=== PATIENT | female | born 1930 | race Caucasian/White ===

== ENCOUNTER 2020-05-06 18:14 | Inpatient (IN) | payer OTHER ==
[2020-05-06 20:26] LABS: BASO % 0.5 % (0-2.0); EOS % 2.5 % (0-4.5); HEMATOCRIT 28.9 % (32.4-45.2); HEMOGLOBIN 9.4 GM/dL (10.7-15.3); LYMPH % 28.8 % (8-40); MCH 33.2 pg (25.7-33.7); MCHC 32.5 g/dl (32.0-36.0); MEAN CELL VOLUME 102.3 fl (80-96); MEAN PLT VOLUME 10.5 fl (7.5-11.1); MONO % 10.1 % (3.8-10.2); NEUT % 58.1 % (42.8-82.8); PLATELET COUNT 323 K/MM3 (134-434); RBC 2.82 M/mm3 (3.60-5.2); RDW 15.1 % (11.6-15.6)
[2020-05-06] MEDS ORDERED: HALOPERIDOL LACTATE 5 MG/ML IM ONE ×2 (20:26→23:31)
[2020-05-06 20:50] LABS: ALBUMIN 2.4 g/dl (3.4-5.0); CALCIUM 10.1 mg/dL (8.5-10.1); MAGNESIUM 2.6 mg/dL (1.8-2.4)
[2020-05-06 20:54] LABS: PHOSPHOROUS 1.8 mg/dL (2.5-4.9)
[2020-05-06 20:55] LABS: BILIRUBIN,TOTAL 0.4 mg/dL (0.2-1); TOT PROT 5.9 g/dl (6.4-8.2)
[2020-05-06 21:11] LABS: BLOOD UREA NITROGEN 142.7 mg/dL (7-18)
[2020-05-06 21:12] LABS: POTASSIUM 6.1 mmol/L (3.5-5.1)
[2020-05-06] MEDS ORDERED: SODIUM CHLORIDE 0.9% 500 ML INFUS.BAG IV ONE (21:17)
[2020-05-06] MEDS ORDERED: CALCIUM GLUCONATE 10% - 1,000 MG/10 ML VIAL IVPUSH ONE (21:18)
[2020-05-06] MEDS ORDERED: INSULIN REGULAR HUMAN 100 UNITS/ML *VIAL IVPUSH ONE (21:19)
[2020-05-06] MEDS ORDERED: DEXTROSE 50%-WATER - 25 GM/50 ML VIAL IVPUSH ONE (21:19)
[2020-05-06] MEDS ORDERED: ALBUTEROL SO4 0.083% IH SOL 2.5 MG/3 ML VIAL.NEB. NEB ONE (21:20)
[2020-05-06] MEDS ORDERED: FUROSEMIDE 40 MG/4 ML INJECTABLE VIAL IVPUSH ONE (21:21)
[2020-05-06] MEDS ORDERED: DEXTROSE 50%-WATER 25 GM/50 ML DISP.SYRIN ONE (21:30)
[2020-05-07] MEDS ORDERED: LEVOTHYROXINE NA 25 MCG TABLET (FP) PO SCH (07:00)
[2020-05-07] MEDS ORDERED: LEVOTHYROXINE 25 MCG PO SCH (09:50)
[2020-05-07] MEDS ORDERED: LEVOTHYROXINE 25 MG PO SCH (10:00)
[2020-05-07] MEDS ORDERED: SILVER SULFADIAZINE 1% TOP CREAM 50 GM JAR TP SCH (10:00)
[2020-05-07] MEDS ORDERED: FERROUS SULFATE 300 MG PO SCH (10:00)
[2020-05-07] MEDS ORDERED: FAMOTIDINE 20 MG TABLET PO SCH (10:00)
[2020-05-07] MEDS ORDERED: FERROUS SULFATE 220 MG PO SCH (10:00)
[2020-05-07] MEDS ORDERED: CALCIUM 500MG/VIT-D 200 UNITS COMBO TABLET (FP) PO SCH (10:00)
[2020-05-07] MEDS: SODIUM CHLORIDE 1,000 ML IV SCH (10:07)
[2020-05-07] MEDS: MULTIVITAMINS (DAILY MVI) TABLET (FP) PO SCH (10:10)
[2020-05-07] MEDS: FOLIC ACID 1 MG TABLET (FP) PO SCH (10:10)
[2020-05-07] MEDS: ASPIRIN 81 MG CHEWABLE TABLETS PO SCH (10:10)
[2020-05-07] MEDS: METOPROLOL TARTRATE 25 MG TABLET (FP) PO SCH ×2 (10:10→22:16)
[2020-05-07] MEDS: ACETAMINOPHEN 500 MG TABLET (FP) PO PRN ×2 (10:10→22:16)
[2020-05-07] MEDS ORDERED: SODIUM ZIRCONIUM CYCLOSILICATE (LOKELMA) 5 GM PACKET PO ONE (10:30)
[2020-05-07] MEDS ORDERED: NAPH,MB-DB/K PH,MBDB POWDER PACKET PO SCH (10:30)
[2020-05-07 11:43] LABS: CREATININE, URINE RANDOM < 13.0 mg/dL (30-150)
[2020-05-07] MEDS ORDERED: PT OWN MED DRAWER 7, Y5N ONE (11:53)
[2020-05-07] MEDS: HEPARIN NA (PORCINE) 5,000 UNITS/ML 1ML VIAL SQ SCH ×2 (11:55→22:17)
[2020-05-07] MEDS: MINERAL OIL/PETROLAT/WATER TOPICAL CREAM 454 GM JAR TP SCH ×2 (11:55→22:15)
[2020-05-07] MEDS: FAMOTIDINE 20 MG TABLET PO SCH (11:56)
[2020-05-07 11:58] LABS: EPI CELLS 5 /uL (0-25.1); HYALINE CASTS 21 /uL (0-3.1); PH,URINE 5.5 (5.0-8.0); URINE APPEARANCE CLOUDY; URINE BACTERIA >9,000 /uL (0-1359); URINE BILIRUBIN NEGATIVE (NEGATIVE); URINE COLOR YELLOW; URINE GLUCOSE (UA) NEGATIVE (NEGATIVE); URINE KETONE NEGATIVE (NEGATIVE); URINE LEUK ESTERASE 3+ (NEGATIVE); URINE NITRITE NEGATIVE (NEGATIVE); URINE PROTEIN NEGATIVE (NEGATIVE); URINE RBC 91 /uL (0-23.9); URINE UROBILINOGEN 0.2 mg/dL (0.2-1.0); URINE WBC 545 /uL (0-25.8)
[2020-05-07 13:19] LABS: CALCIUM 9.9 mg/dL (8.5-10.1); POTASSIUM 5.2 mmol/L (3.5-5.1)
[2020-05-07 13:23] LABS: POTASSIUM 5.1 mmol/L (3.5-5.1)
[2020-05-07 13:30] LABS: BLOOD UREA NITROGEN 145.3 mg/dL (7-18)
[2020-05-07 13:39] LABS: ALBUMIN 2.2 g/dl (3.4-5.0)
[2020-05-07 13:40] LABS: MAGNESIUM 2.6 mg/dL (1.8-2.4)
[2020-05-07 13:43] LABS: PHOSPHOROUS 2.1 mg/dL (2.5-4.9)
[2020-05-07 13:44] LABS: TOT PROT 5.5 g/dl (6.4-8.2)
[2020-05-07 13:52] LABS: BILIRUBIN,TOTAL 0.7 mg/dL (0.2-1)
[2020-05-07 13:53] LABS: BLOOD UREA NITROGEN 139.4 mg/dL (7-18)
[2020-05-07] MEDS: MIRTAZAPINE 15 MG TABLET (FP) PO SCH (22:15)
[2020-05-07] MEDS: FERROUS SO4 325 MG TABLET (FP) PO SCH (22:16)
[2020-05-08] MEDS: LEVOTHYROXINE NA 75 MCG TABLET (FP) PO SCH (06:16)
[2020-05-08] MEDS: SODIUM CHLORIDE 1,000 ML IV SCH (08:25)
[2020-05-08 10:07] LABS: BASO % 0.4 % (0-2.0); EOS % 4.3 % (0-4.5); HEMATOCRIT 23.2 % (32.4-45.2); HEMOGLOBIN 7.6 GM/dL (10.7-15.3); LYMPH % 35.1 % (8-40); MCH 34.2 pg (25.7-33.7); MCHC 32.8 g/dl (32.0-36.0); MEAN CELL VOLUME 104.3 fl (80-96); MONO % 9.2 % (3.8-10.2); PLATELET COUNT 289 K/MM3 (134-434); RBC 2.23 M/mm3 (3.60-5.2); RDW 16.1 % (11.6-15.6); WHITE BLOOD COUNT 6.5 K/mm3 (4.0-10.0)
[2020-05-08 10:22] LABS: POTASSIUM 4.7 mmol/L (3.5-5.1)
[2020-05-08 10:25] LABS: CALCIUM 8.8 mg/dL (8.5-10.1)
[2020-05-08 10:27] LABS: CREATININE 1.8 mg/dL (0.55-1.3)
[2020-05-08 10:48] LABS: BLOOD UREA NITROGEN 120.1 mg/dL (7-18)
[2020-05-08] MEDS: FERROUS SO4 325 MG TABLET (FP) PO SCH ×2 (11:26→22:23)
[2020-05-08] MEDS: ASPIRIN 81 MG CHEWABLE TABLETS PO SCH (11:26)
[2020-05-08] MEDS: HEPARIN NA (PORCINE) 5,000 UNITS/ML 1ML VIAL SQ SCH ×2 (11:26→22:23)
[2020-05-08] MEDS: MINERAL OIL/PETROLAT/WATER TOPICAL CREAM 454 GM JAR TP SCH ×2 (11:26→22:23)
[2020-05-08] MEDS: FOLIC ACID 1 MG TABLET (FP) PO SCH (11:26)
[2020-05-08] MEDS: ACETAMINOPHEN 500 MG TABLET (FP) PO PRN (11:27)
[2020-05-08] MEDS: METOPROLOL TARTRATE 25 MG TABLET (FP) PO SCH ×2 (11:27→22:23)
[2020-05-08] MEDS: FAMOTIDINE 20 MG TABLET PO SCH (11:28)
[2020-05-08] MEDS: MULTIVITAMINS (DAILY MVI) TABLET (FP) PO SCH (11:35)
[2020-05-08] MEDS ORDERED: SODIUM CHLORIDE 1,000 ML IV SCH (12:59)
[2020-05-08] MEDS: SILVER SULFADIAZINE 1% TOP CREAM 50 GM JAR TP SCH (14:01)
[2020-05-08] MEDS: MIRTAZAPINE 15 MG TABLET (FP) PO SCH (22:23)
[2020-05-09] MEDS: LEVOTHYROXINE NA 75 MCG TABLET (FP) PO SCH (06:29)
[2020-05-09 08:54] LABS: POTASSIUM 4.4 mmol/L (3.5-5.1)
[2020-05-09 09:03] LABS: BILIRUBIN,TOTAL 0.6 mg/dL (0.2-1); TOT PROT 4.8 g/dl (6.4-8.2)
[2020-05-09 09:04] LABS: CALCIUM 8.3 mg/dL (8.5-10.1)
[2020-05-09 09:05] LABS: MAGNESIUM 2.3 mg/dL (1.8-2.4)
[2020-05-09 09:07] LABS: BLOOD UREA NITROGEN 103.6 mg/dL (7-18)
[2020-05-09 09:13] LABS: CREATININE 1.7 mg/dL (0.55-1.3)
[2020-05-09 09:40] LABS: BASO % 0.7 % (0-2.0); EOS % 4.7 % (0-4.5); LYMPH % 36.5 % (8-40); MCH 33.5 pg (25.7-33.7); MCHC 31.9 g/dl (32.0-36.0); MEAN CELL VOLUME 104.9 fl (80-96); MONO % 8.9 % (3.8-10.2); NEUT % 49.2 % (42.8-82.8); PLATELET COUNT 243 K/MM3 (134-434); RBC 2.38 M/mm3 (3.60-5.2); RDW 17.6 % (11.6-15.6); WHITE BLOOD COUNT 7.3 K/mm3 (4.0-10.0)
[2020-05-09] MEDS: MINERAL OIL/PETROLAT/WATER TOPICAL CREAM 454 GM JAR TP SCH ×2 (11:25→21:16)
[2020-05-09] MEDS: ASPIRIN 81 MG CHEWABLE TABLETS PO SCH (11:25)
[2020-05-09] MEDS: FERROUS SO4 325 MG TABLET (FP) PO SCH ×2 (11:26→21:15)
[2020-05-09] MEDS: FAMOTIDINE 20 MG TABLET PO SCH (11:26)
[2020-05-09] MEDS: SILVER SULFADIAZINE 1% TOP CREAM 50 GM JAR TP SCH (11:26)
[2020-05-09] MEDS: HEPARIN NA (PORCINE) 5,000 UNITS/ML 1ML VIAL SQ SCH ×2 (11:26→21:16)
[2020-05-09] MEDS: MULTIVITAMINS (DAILY MVI) TABLET (FP) PO SCH (11:26)
[2020-05-09] MEDS: FOLIC ACID 1 MG TABLET (FP) PO SCH (11:26)
[2020-05-09] MEDS: METOPROLOL TARTRATE 25 MG TABLET (FP) PO SCH ×2 (11:26→21:15)
[2020-05-09] MEDS: SODIUM CHLORIDE 0.45% 1,000 ML IV SCH ×2 (12:18→23:26)
[2020-05-09 14:04] VITALS: BMI 18.9
[2020-05-09] MEDS: AMINO ACIDS/PROTEIN HYDROLYS 30 ML LIQUID.PKT PO SCH (17:22)
[2020-05-09] MEDS: SODIUM BICARBONATE 650 MG TABLET PO SCH (17:22)
[2020-05-09] MEDS: MIRTAZAPINE 15 MG TABLET (FP) PO SCH (21:16)
[2020-05-09] MEDS: ACETAMINOPHEN 500 MG TABLET (FP) PO PRN (21:16)
[2020-05-10] MEDS: LEVOTHYROXINE NA 75 MCG TABLET (FP) PO SCH (06:10)
[2020-05-10 07:45] LABS: BASO % 0.5 % (0-2.0); EOS % 4.5 % (0-4.5); HEMATOCRIT 29.1 % (32.4-45.2); HEMOGLOBIN 9.3 GM/dL (10.7-15.3); LYMPH % 31.9 % (8-40); MCHC 32.1 g/dl (32.0-36.0); MEAN CELL VOLUME 105.9 fl (80-96); MEAN PLT VOLUME 9.2 fl (7.5-11.1); MONO % 10.1 % (3.8-10.2); PLATELET COUNT 333 K/MM3 (134-434); RBC 2.75 M/mm3 (3.60-5.2); RDW 17.8 % (11.6-15.6); WHITE BLOOD COUNT 8.1 K/mm3 (4.0-10.0)
[2020-05-10 07:56] LABS: POTASSIUM 3.9 mmol/L (3.5-5.1)
[2020-05-10 08:01] LABS: CALCIUM 7.9 mg/dL (8.5-10.1)
[2020-05-10 08:03] LABS: ALBUMIN 2.2 g/dl (3.4-5.0); BLOOD UREA NITROGEN 99.2 mg/dL (7-18)
[2020-05-10 08:05] LABS: BILIRUBIN,TOTAL 0.5 mg/dL (0.2-1); CREATININE 1.7 mg/dL (0.55-1.3); TOT PROT 5.4 g/dl (6.4-8.2)
[2020-05-10] MEDS ORDERED: PT OWN MED DRAWER 7, Y5N ONE (09:17)
[2020-05-10] MEDS: FOLIC ACID 1 MG TABLET (FP) PO SCH (09:31)
[2020-05-10] MEDS: MULTIVITAMINS (DAILY MVI) TABLET (FP) PO SCH (09:31)
[2020-05-10] MEDS: FAMOTIDINE 20 MG TABLET PO SCH (09:31)
[2020-05-10] MEDS: MULTIVIT-MINERALS ORAL LIQUID PO SCH (09:31)
[2020-05-10] MEDS: FERROUS SO4 325 MG TABLET (FP) PO SCH ×2 (09:32→21:10)
[2020-05-10] MEDS: ASPIRIN 81 MG CHEWABLE TABLETS PO SCH (09:32)
[2020-05-10] MEDS: METOPROLOL TARTRATE 25 MG TABLET (FP) PO SCH ×2 (09:32→21:11)
[2020-05-10] MEDS: HEPARIN NA (PORCINE) 5,000 UNITS/ML 1ML VIAL SQ SCH ×2 (09:32→21:11)
[2020-05-10] MEDS: SODIUM BICARBONATE 650 MG TABLET PO SCH (09:32)
[2020-05-10] MEDS: AMINO ACIDS/PROTEIN HYDROLYS 30 ML LIQUID.PKT PO SCH ×2 (09:32→18:39)
[2020-05-10] MEDS: SILVER SULFADIAZINE 1% TOP CREAM 50 GM JAR TP SCH (09:37)
[2020-05-10] MEDS: MINERAL OIL/PETROLAT/WATER TOPICAL CREAM 454 GM JAR TP SCH ×2 (09:37→21:10)
[2020-05-10] MEDS: SODIUM BICARBONATE 8.4% - 75 MEQ in DEXTROSE 5%-WATER - 1,000 ML IV SCH (12:02)
[2020-05-10 12:40] LABS: ANISOCYTOSIS 2+; MACROCYTOSIS 2+; PLATELET ESTIMATE NORMAL
[2020-05-10] MEDS: MIRTAZAPINE 15 MG TABLET (FP) PO SCH (21:11)
[2020-05-11] MEDS: SODIUM BICARBONATE 8.4% - 75 MEQ in DEXTROSE 5%-WATER - 1,000 ML IV SCH ×2 (00:43→12:10)
[2020-05-11] MEDS: LEVOTHYROXINE NA 75 MCG TABLET (FP) PO SCH (06:25)
[2020-05-11 07:20] LABS: BASO % 0.4 % (0-2.0); EOS % 4.4 % (0-4.5); HEMATOCRIT 25.8 % (32.4-45.2); HEMOGLOBIN 8.3 GM/dL (10.7-15.3); LYMPH % 33.6 % (8-40); MCH 33.6 pg (25.7-33.7); MCHC 32.4 g/dl (32.0-36.0); MEAN CELL VOLUME 103.7 fl (80-96); MEAN PLT VOLUME 9.4 fl (7.5-11.1); MONO % 5.9 % (3.8-10.2); NEUT % 55.7 % (42.8-82.8); PLATELET COUNT 355 K/MM3 (134-434); RBC 2.48 M/mm3 (3.60-5.2); RDW 17.1 % (11.6-15.6); WHITE BLOOD COUNT 8.2 K/mm3 (4.0-10.0)
[2020-05-11 07:41] LABS: POTASSIUM 3.6 mmol/L (3.5-5.1)
[2020-05-11 07:43] LABS: ALBUMIN 2.2 g/dl (3.4-5.0); CALCIUM 7.3 mg/dL (8.5-10.1)
[2020-05-11 07:44] LABS: BLOOD UREA NITROGEN 84.1 mg/dL (7-18)
[2020-05-11 07:47] LABS: CREATININE 1.6 mg/dL (0.55-1.3)
[2020-05-11 07:48] LABS: BILIRUBIN,TOTAL 0.4 mg/dL (0.2-1); TOT PROT 5.2 g/dl (6.4-8.2)
[2020-05-11] MEDS: AMINO ACIDS/PROTEIN HYDROLYS 30 ML LIQUID.PKT PO SCH ×2 (09:46→18:59)
[2020-05-11] MEDS: HEPARIN NA (PORCINE) 5,000 UNITS/ML 1ML VIAL SQ SCH ×2 (09:47→21:52)
[2020-05-11] MEDS: FERROUS SO4 325 MG TABLET (FP) PO SCH ×2 (09:47→21:45)
[2020-05-11] MEDS: METOPROLOL TARTRATE 25 MG TABLET (FP) PO SCH ×2 (09:47→21:52)
[2020-05-11] MEDS: ASPIRIN 81 MG CHEWABLE TABLETS PO SCH (09:47)
[2020-05-11] MEDS: FAMOTIDINE 20 MG TABLET PO SCH (09:47)
[2020-05-11] MEDS: FOLIC ACID 1 MG TABLET (FP) PO SCH (09:47)
[2020-05-11] MEDS: SILVER SULFADIAZINE 1% TOP CREAM 50 GM JAR TP SCH (09:48)
[2020-05-11] MEDS: MINERAL OIL/PETROLAT/WATER TOPICAL CREAM 454 GM JAR TP SCH ×2 (09:48→21:45)
[2020-05-11] MEDS: MULTIVIT-MINERALS ORAL LIQUID PO SCH (09:48)
[2020-05-11] MEDS: MULTIVITAMINS (DAILY MVI) TABLET (FP) PO SCH (09:49)
[2020-05-11] MEDS: MIRTAZAPINE 15 MG TABLET (FP) PO SCH (21:53)
[2020-05-12] MEDS: SODIUM BICARBONATE 8.4% - 75 MEQ in DEXTROSE 5%-WATER - 1,000 ML IV SCH ×2 (01:08→12:48)
[2020-05-12] MEDS: ACETAMINOPHEN 500 MG TABLET (FP) PO PRN (02:41)
[2020-05-12] MEDS: LEVOTHYROXINE NA 75 MCG TABLET (FP) PO SCH (06:18)
[2020-05-12 07:11] LABS: BASO % 0.3 % (0-2.0); HEMATOCRIT 25.9 % (32.4-45.2); HEMOGLOBIN 8.6 GM/dL (10.7-15.3); LYMPH % 39.2 % (8-40); MCH 33.5 pg (25.7-33.7); MCHC 33.1 g/dl (32.0-36.0); MEAN CELL VOLUME 101.4 fl (80-96); MEAN PLT VOLUME 8.8 fl (7.5-11.1); MONO % 7.3 % (3.8-10.2); NEUT % 48.2 % (42.8-82.8); PLATELET COUNT 325 K/MM3 (134-434); RBC 2.55 M/mm3 (3.60-5.2); RDW 16.5 % (11.6-15.6); WHITE BLOOD COUNT 8.3 K/mm3 (4.0-10.0)
[2020-05-12 07:44] LABS: BLOOD UREA NITROGEN 74.2 mg/dL (7-18)
[2020-05-12 07:45] LABS: MAGNESIUM 1.6 mg/dL (1.8-2.4)
[2020-05-12 07:48] LABS: CREATININE 1.5 mg/dL (0.55-1.3); PHOSPHOROUS 2.5 mg/dL (2.5-4.9)
[2020-05-12 07:49] LABS: BILIRUBIN,TOTAL 0.5 mg/dL (0.2-1); TOT PROT 5.1 g/dl (6.4-8.2)
[2020-05-12] MEDS ORDERED: PT OWN MED DRAWER 7, Y5N ONE (09:49)
[2020-05-12] MEDS: ASPIRIN 81 MG CHEWABLE TABLETS PO SCH (09:52)
[2020-05-12] MEDS: MULTIVITAMINS (DAILY MVI) TABLET (FP) PO SCH (09:52)
[2020-05-12] MEDS: FAMOTIDINE 20 MG TABLET PO SCH (09:52)
[2020-05-12] MEDS: METOPROLOL TARTRATE 25 MG TABLET (FP) PO SCH ×2 (09:52→22:22)
[2020-05-12] MEDS: AMINO ACIDS/PROTEIN HYDROLYS 30 ML LIQUID.PKT PO SCH ×2 (09:52→17:20)
[2020-05-12] MEDS: FERROUS SO4 325 MG TABLET (FP) PO SCH ×2 (09:52→22:21)
[2020-05-12] MEDS: FOLIC ACID 1 MG TABLET (FP) PO SCH (09:52)
[2020-05-12] MEDS: HEPARIN NA (PORCINE) 5,000 UNITS/ML 1ML VIAL SQ SCH ×2 (09:53→22:23)
[2020-05-12] MEDS: MULTIVIT-MINERALS ORAL LIQUID PO SCH (09:53)
[2020-05-12] MEDS: SILVER SULFADIAZINE 1% TOP CREAM 50 GM JAR TP SCH (09:53)
[2020-05-12] MEDS: MINERAL OIL/PETROLAT/WATER TOPICAL CREAM 454 GM JAR TP SCH ×2 (09:53→22:21)
[2020-05-12] MEDS ORDERED: POTASSIUM CHLORIDE ORAL LIQUID 20 MEQ/15 ML PO ONE (16:03)
[2020-05-12] MEDS ORDERED: SODIUM CHLORIDE 0.45%/POT 20 MEQ/1,000 ML INFUS.BAG IV SCH (16:15)
[2020-05-12] MEDS: CEPHALEXIN MONOHYDRATE 500 MG CAPSULE (UD) PO SCH (22:22)
[2020-05-12] MEDS: MIRTAZAPINE 15 MG TABLET (FP) PO SCH (22:22)
[2020-05-13] MEDS: LEVOTHYROXINE NA 75 MCG TABLET (FP) PO SCH (06:29)
[2020-05-13 08:04] LABS: POTASSIUM 4.3 mmol/L (3.5-5.1)
[2020-05-13 08:16] LABS: BLOOD UREA NITROGEN 65.4 mg/dL (7-18)
[2020-05-13 08:17] LABS: CALCIUM 7.1 mg/dL (8.5-10.1)
[2020-05-13 08:20] LABS: CREATININE 1.4 mg/dL (0.55-1.3)
[2020-05-13] MEDS: AMINO ACIDS/PROTEIN HYDROLYS 30 ML LIQUID.PKT PO SCH (09:00)
[2020-05-13] MEDS: ASPIRIN 81 MG CHEWABLE TABLETS PO SCH (09:06)
[2020-05-13] MEDS: METOPROLOL TARTRATE 25 MG TABLET (FP) PO SCH (09:06)
[2020-05-13] MEDS: CEPHALEXIN MONOHYDRATE 500 MG CAPSULE (UD) PO SCH (09:07)
[2020-05-13] MEDS: FERROUS SO4 325 MG TABLET (FP) PO SCH (09:07)
[2020-05-13] MEDS: MULTIVITAMINS (DAILY MVI) TABLET (FP) PO SCH (09:08)
[2020-05-13] MEDS: MINERAL OIL/PETROLAT/WATER TOPICAL CREAM 454 GM JAR TP SCH (09:09)
[2020-05-13] MEDS: HEPARIN NA (PORCINE) 5,000 UNITS/ML 1ML VIAL SQ SCH (09:09)
[2020-05-13] MEDS: FAMOTIDINE 20 MG TABLET PO SCH (09:09)
[2020-05-13] MEDS: FOLIC ACID 1 MG TABLET (FP) PO SCH (09:09)
[2020-05-13] MEDS: SILVER SULFADIAZINE 1% TOP CREAM 50 GM JAR TP SCH (09:09)
[2020-05-13] MEDS: MULTIVIT-MINERALS ORAL LIQUID PO SCH (09:15)
[2020-05-13 12:19] LABS: HEMATOCRIT 23.8 % (32.4-45.2); HEMOGLOBIN 7.9 GM/dL (10.7-15.3); MCH 33.8 pg (25.7-33.7); MCHC 33.3 g/dl (32.0-36.0); MEAN CELL VOLUME 101.5 fl (80-96); MEAN PLT VOLUME 8.8 fl (7.5-11.1); PLATELET COUNT 280 K/MM3 (134-434); RBC 2.34 M/mm3 (3.60-5.2); RDW 16.8 % (11.6-15.6); WHITE BLOOD COUNT 7.1 K/mm3 (4.0-10.0)
[2020-05-13 13:52] VITALS: BP 122/70; PULSE 75; TEMP 97
== END 2020-05-13 15:00 | DRG 683 ==
LOC: JER 18:14 → JERBED 21:24 → J4S 05-07 00:52
PROVIDERS: ADMIT Internal Medicine; ATTEND Family Medicine
DX: N17.9 Acute kidney failure, unspecified (principal); R64 Cachexia; Z68.1 Body mass index [BMI] 19.9 or less, adult; E87.2 Acidosis; E87.0 Hyperosmolality and hypernatremia; N39.0 Urinary tract infection, site not specified; E87.5 Hyperkalemia; K21.9 Gastro-esophageal reflux disease without esophagitis; I10 Essential (primary) hypertension; D64.9 Anemia, unspecified; E03.9 Hypothyroidism, unspecified; I25.10 Atherosclerotic heart disease of native coronary artery without angina pectoris; F32.9 Major depressive disorder, single episode, unspecified; E83.39 Other disorders of phosphorus metabolism; F03.90 Unspecified dementia, unspecified severity, without behavioral disturbance, psychotic disturbance, mood disturbance, and anxiety; B96.1 Klebsiella pneumoniae [K. pneumoniae] as the cause of diseases classified elsewhere; S81.802A Unspecified open wound, left lower leg, initial encounter; S81.801A Unspecified open wound, right lower leg, initial encounter
CPT/HCPCS: 36415; 71045-TC-FY; 76775-TC; 80048; 80053; 81003; 82272; 82550; 82565; 82607; 82728; 83540; 83550; 83605; 83735; 84100; 84156; 84300; 84443; 84484; 85025; 85027; 87086; 87186; 87205; 93005; 93010; 97161-GP; 99285-25; C9803; J1644; J3480; U0003